=== PATIENT | male | born 1955 | race Two or more races ===

== ENCOUNTER 2016-09-19 09:18 | Emergency (ER) | payer BC, MEDICAID, OTHER ==
[~2016-09-19] VITALS: Ht 188 cm; Wt 95.3 kg
[~2016-09-19 09:18] MED LIST: ALBUTEROL SULF8.5 GM INH; AZITHROMYCIN250 MG ORAL; CIPRO500 MG/51 PO; NKM; PREDNISONE20 MG ORAL; TRAMADOL HCL E100 MG ORAL
[2016-09-19 10:00] VITALS: BP 126/68
[2016-09-19] MEDS ORDERED: Piperacillin/Tazobactam 3.375 GM in NS 110 ML IVPB ONE (10:00)
[2016-09-19] MEDS ORDERED: Morphine Sulfate 4mg/ml Inj IVP ONE ×2 (10:00→13:45)
[2016-09-19] MEDS ORDERED: Zosyn 3.375gm inj ONE (10:02)
[2016-09-19] MEDS ORDERED: NS 110 ML ONE (10:02)
[2016-09-19] MEDS ORDERED: Tubing IV Cassette IV ONE (10:02)
[2016-09-19 10:05] LABS: BASOPHILS % (AUTO) 0.9 % (0.0-2.0); EOSINOPHILS % (AUTO) 0.7 % (0.0-3.0); LYMPHOCYTES % (AUTO) 17.5 % (20.0-45.0); MEAN CORPUSCULAR HEMOGLOBIN 29.5 PG (27.0-31.0); MEAN CORPUSCULAR VOLUME 87 FL (80-99); MEAN PLATELET VOLUME 6.6 FL (6.5-10.1); MONOCYTES % (AUTO) 11.7 % (1.0-10.0); NEUTROPHILS % (AUTO) 69.1 % (45.0-75.0); PLATELET COUNT 162 K/UL (150-450); RED BLOOD COUNT 5.46 M/UL (4.70-6.10); RED CELL DISTRIBUTION WIDTH 11.6 % (11.6-14.8); WHITE BLOOD COUNT 8.6 K/UL (4.8-10.8)
[2016-09-19 10:16] LABS: INR 1.1 (0.9-1.1); PROTHROMBIN TIME 11.3 SEC (9.30-11.50)
[2016-09-19 10:29] LABS: ALANINE AMINOTRANSFERASE 16 U/L (3-41); ALBUMIN/GLOBULIN RATIO 1.5 (1.0-2.7); ANION GAP 15 (5-15); ASPARTATE AMINO TRANSFERASE 14 U/L (5-40); CALCIUM 9.4 mg/dL (8.6-10.2); CARBON DIOXIDE 25 mEQ/L (20-30); CHLORIDE 97 mEQ/L (98-107); CREATININE 0.9 mg/dL (0.7-1.2); GLOMERULAR FILTRATION RATE > 60 mL/min (>60); HEMOLYSIS 13; POTASSIUM 4.4 mEQ/L (3.4-4.9); SODIUM 137 mEQ/L (135-145); TOTAL PROTEIN 6.5 g/dL (6.6-8.7)
[2016-09-19 11:00] VITALS: BP 105/48
--- NOTE | 2016-09-19 11:55 | Diagnostic Imaging Report ---
Indications: Rectal pain Technique: Continuous helical CT imaging of the abdomen and pelvis was performed with automatic exposure control following administration of nonionic IV contrast only, on a Siemens sensation [address] scanner. Axial and coronal images were reconstructed at 5 mm slice thickness. No oral contrast was administered per requesting physician's order, no contraindications listed. CTDI volume(s): 17, 20 mGy Total DLP: 944, 672 mGy-cm Findings: Comparison: 03/04/2016 Lack of oral contrast limits evaluation of gastrointestinal tract, nondilated throughout. Within the perineum immediately anterior to the anorectal junction there is in its a 2.5 x 1.5 x 3 cm circumscribed low-attenuation mass/fluid collection with peripheral enhancement and surrounding stranding. No associated gas. Communication with the rectum is indeterminate. The entire gastrointestinal tract is nondilated. No obvious mural thickening, intra-abdominal/intrapelvic extraluminal gas or fluid collections. Multiple prominent soft tissue mass/enlarged lymph nodes are again noted in the para-aortic region of the retroperitoneum up to 5.5 cm, along both iliac chains/pelvic sidewalls up to 4.7 cm, and in the bilateral inguinal regions up to 4.3 cm, not significantly changed. 2-3 mm calcification is again noted in the lower pole of the right kidney likely within a calyx. Circumscribed low attenuation foci are again noted in the bilateral renal cortices. Scattered arterial mural calcifications are again noted without obvious flow-limiting stenosis or occlusion. Remainder visualized abdominopelvic anatomy demonstrates no other obvious acute abnormality. Pleural-based linear and hazy parenchymal opacities are present in the dependent portions of both lung bases. Disc marginal osteophytes again noted scattered throughout the lumbar and lower thoracic spine. No focal skeletal lesions are identified. IMPRESSION: 3 cm lower perirectal abscess Extensive retroperitoneal and bilateral inguinal bulky adenopathy suspicious for lymphoma, stable Nonobstructive right nephrolithiasis Bilateral renal cortical cysts Mild arteriosclerosis Mild degenerative spondylosis Pulmonary bibasal opacities most likely atelectatic. Superimposed edema or inflammation not excludable.
[2016-09-19 12:05] VITALS: BP 133/55
--- NOTE | 2016-09-19 12:19 | Emergency Room Report ---
History of Present Illness General Chief Complaint: Skin Rash/Abscess Source: Patient Present Illness HPI Patient is a 61-year-old male presented after increased rectal pain and swelling. The patient for having increased pain with movement. He had previously been seen for perirectal abscess in the past. Patient prior history of non-Hodgkin's lymphoma. Patient had no reported fever. He had reportedly had recent increased lymph nodes. Patient had not been receiving any chemotherapy for the past 3 years. The patient had previously been followed by Dr. Davison for oncology. He denied any recent antibiotic use. The patient had incision and drainage pressure 1 year ago Allergies: Coded Allergies: No Known Allergies (Unverified , 08/24/15) Patient History Past Medical History: see triage record Reviewed Nursing Documentation: PMH: Agreed, PSxH: Agreed Nursing Documentation-PMH Hx Cardiac Problems: No Hx Cancer: Yes - NHL 2011, 'ed with chemo Hx Gastrointestinal Problems: No Hx Neurological Problems: No Review of Systems All Other Systems: negative except mentioned in HPI Physical Exam Vital Signs Date Time Temp Pulse Resp B/P Pulse Ox O2 Delivery O2 Flow Rate FiO2 09/19/16 09:21 98.1 83 20 133/75 100 Room Air Sp02 EP Interpretation: reviewed, normal General Appearance: normal inspection, well appearing, no apparent distress, alert, GCS 15, non-toxic Head: atraumatic ENT: normal ENT inspection, hearing grossly normal, normal voice Neck: normal inspection, full range of motion, supple, no bony tend Respiratory: normal inspection, lungs clear, normal breath sounds, no respiratory distress, no retraction, no wheezing Cardiovascular #1: regular rate, rhythm, no edema Gastrointestinal: normal inspection, normal bowel sounds, non tender, soft, no guarding, no hernia Rectal: tenderness - erythema Genitourinary: no CVA tenderness Musculoskeletal: normal inspection, back normal, normal range of motion Neurologic: normal inspection, alert, oriented x3, responsive, computed tomography technologist III-XII nml as tested, speech normal Psychiatric: normal inspection, judgement/insight normal, mood/affect normal Skin: other Medical Decision Making Diagnostic Impression: Primary Impression: Em-rectal abscess ER Course Patient is a 61-year-old male presented after increased rectal pain. Differential diagnosis included was not limited to abscess, lymphoma, fistula, Fourniere's gangrene. Because of complexity of patient's case laboratory testing and imaging studies were ordered. The patient was noted to have a normal white blood count was elevated lymphocytes. CT imaging of the abdomen and pelvis showed evidence of perirectal abscess. Patient was started on IV antibiotics. Patient was discussed with Dr. Schneider for [facility]. He agreed accept patient in transfer states that they have the capacity to take care of the patient. Labs Test 09/19/16 09:45 09/19/16 10:00 White Blood Count 8.6 K/UL (4.8-10.8) Red Blood Count 5.46 M/UL (4.70-6.10) Hemoglobin 16.1 G/DL (14.2-18.0) Hematocrit 47.5 % (42.0-52.0) Mean Corpuscular Volume 87 FL (80-99) Mean Corpuscular Hemoglobin 29.5 PG (27.0-31.0) Mean Corpuscular Hemoglobin Concent 34.0 G/DL (32.0-36.0) Red Cell Distribution Width 11.6 % (11.6-14.8) Platelet Count 162 K/UL (150-450) Mean Platelet Volume 6.6 FL (6.5-10.1) Neutrophils (%) (Auto) 69.1 % (45.0-75.0) Lymphocytes (%) (Auto) 17.5 % (20.0-45.0) Monocytes (%) (Auto) 11.7 % (1.0-10.0) Eosinophils (%) (Auto) 0.7 % (0.0-3.0) Basophils (%) (Auto) 0.9 % (0.0-2.0) Prothrombin Time 11.3 SEC (9.30-11.50) Prothromb Time International Ratio 1.1 (0.9-1.1) Activated Partial Thromboplast Time 28 SEC (23-33) Sodium Level 137 mEQ/L (135-145) Potassium Level 4.4 mEQ/L (3.4-4.9) Chloride Level 97 mEQ/L (98-107) Carbon Dioxide Level 25 mEQ/L (20-30) Anion Gap 15 (5-15) Blood Urea Nitrogen 12 mg/dL (7-23) Creatinine 0.9 mg/dL (0.7-1.2) Estimat Glomerular Filtration Rate > 60 mL/min (>60) Glucose Level 110 mg/dL (74-106) Calcium Level 9.4 mg/dL (8.6-10.2) Total Bilirubin 0.9 mg/dL (0.0-1.2) Aspartate Amino Transf (AST/SGOT) 14 U/L (5-40) Alanine Aminotransferase (ALT/SGPT) 16 U/L (3-41) Alkaline Phosphatase 70 U/L (40-129) Total Protein 6.5 g/dL (6.6-8.7) Albumin 3.9 g/dL (3.5-5.2) Globulin 2.6 g/dL Albumin/Globulin Ratio 1.5 (1.0-2.7) Lactic Acid Level 0.70 mmol/L (0.66-2.22) Last Vital Signs Date Time Temp Pulse Resp B/P Pulse Ox O2 Delivery O2 Flow Rate FiO2 09/19/16 12:05 55 16 133/55 95 Room Air 09/19/16 10:46 98.0 Status: unchanged Disposition: XFER SHT-TRM HOSP Condition: Serious Referrals: [facility],REFERRING (PCP) Marcial Brian September 19, 2016 12:19
[2016-09-19 13:38] VITALS: BP 102/58
[2016-09-19 15:24] VITALS: BP 126/80
[2016-09-19 15:57] VITALS: BP 126/80
--- NOTE | 2016-09-21 19:54 | Cardiology Report ---
APPROVED REPORT EKG Measurement Heart [id number] Normal sinus rhythm Normal ECG
== END 2016-09-19 15:57 | disposition short-term general hospital (02) ==
LOC: EMR 09:50
DX: K61.1 Rectal abscess (principal); Z85.72 Personal history of non-Hodgkin lymphomas; N20.0 Calculus of kidney; N28.1 Cyst of kidney, acquired; R59.0 Localized enlarged lymph nodes; M47.816 Spondylosis without myelopathy or radiculopathy, lumbar region; M47.814 Spondylosis without myelopathy or radiculopathy, thoracic region; R91.8 Other nonspecific abnormal finding of lung field
CPT/HCPCS: 36415; 74177; 80053; 82962; 83605; 85025; 85610; 85730; 86850; 86900; 86901; 87040; 93005; 96374; 96375; 99285; J2270; J2405; J2543; Q9967